=== PATIENT | female | born 1940 | race Caucasian/White ===

== ENCOUNTER 2021-11-15 13:05 | Inpatient (IN) | payer OTHER, SELFPAY ==
[~2021-11-15] VITALS: Ht 152.4 cm; Wt 63.5 kg
[2021-11-15 13:10] VITALS: BP_SYST 130
--- NOTE | 2021-11-15 13:10 | NUR ---
pt. BIB BLS from [facility] for generalized weakness and low O2 Sat per EMS report, Pt. remains in ambulance awaiting a bed, triage done, pt. was on 5L/mask O sat 98% at scene, with hx. of COPD attempted place pt. on NC, O2 sat decreased, remains on 5L/mask
--- NOTE | 2021-11-15 15:00 | NUR ---
ER saw pt. in ambulance patient.
--- NOTE | 2021-11-15 15:47 | NUR ---
BROUGHT IN BY [facility] TO BED #2
[2021-11-15 15:54] LABS: BASOPHILS % (AUTO) 0.2 % (0.0-2.0); HEMATOCRIT 29.9 % (36-48); HEMOGLOBIN 9.5 g/dL (12.0-16.0); LYMPHOCYTES # (AUTO) 0.4 K/uL (1.0-5.5); LYMPHOCYTES % (AUTO) 2.9 % (20.5-51.5); MEAN CORPUSCULAR HEMOGLOBIN 27 pg (27-31); MEAN CORPUSCULAR HGB CONC 32 % (32-36); MEAN CORPUSCULAR VOLUME 85 fL (79.0-98.0); MONOCYTES # (AUTO) 0.8 K/uL (0.0-1.0); MONOCYTES % (AUTO) 6.1 % (1.7-9.3); NEUTROPHILS # (AUTO) 12.5 K/uL (1.8-7.7); NEUTROPHILS % (AUTO) 90.8 % (40.0-70.0); PLATELET COUNT (AUTO) 644 K/uL (130-430); RED BLOOD CELL COUNT(AUTO) 3.51 MIL/uL (4.2-6.2); RED CELL DISTRIBUTION WIDTH 16.2 % (9.0-15.0); WHITE BLOOD COUNT (AUTO) 13.8 K/uL (4.8-10.8)
--- NOTE | 2021-11-15 16:03 | NUR ---
SPOKE WITH DAUGHTER AND UPDATE GIVEN
[2021-11-15 16:40] LABS: ANION GAP 2 (5-15); CALCIUM 8.9 mg/dL (8.4-11.0); CHLORIDE 95 mmol/L (98-107); CREATININE 0.95 mg/dL (0.55-1.30); GLUCOSE 103 mg/dL (70-99); POTASSIUM 4.3 mmol/L (3.5-5.1); SODIUM SERUM 136 mmol/L (136-145); UREA NITROGEN, BLOOD 43 mg/dL (8-21)
[2021-11-15 16:50] LABS: ALANINE AMINOTRANSFERASE 47 U/L (12-78); ALBUMIN 2.4 g/dL (3.4-4.8); ASPARTATE AMINOTRANSFERASE 16 U/L (10-37); TOTAL BILIRUBIN 0.2 mg/dL (0.0-1.0)
--- NOTE | 2021-11-15 17:12 | NUR ---
patient condition goes unchanged, vss. patient sob with exertion. will monitor spo2. spo2 on 3L 92%. comfort and safety implemented
--- NOTE | 2021-11-15 17:14 | NUR ---
Son at bedside to give medication list. Son states that patient has history of schizophernia. patient stop taking psych. meds since before xmas and became manic, running outside in the rain, so admitted to [facility] a week ago for 72 hour psych. hold. patient's medication was adjusted and patient was discharaged. Patient has been home for two days and family states patient has displayed tremors and lethargy from new medications. patient's family states home health care came to home and advised them to get patient evaluated. patient demonstrates tremors and rigidity and is non verbal.
--- NOTE | 2021-11-15 17:20 | NUR ---
Son is Kuldeep Sharp [phone] and has advanced directives on file at [facility]
--- NOTE | 2021-11-15 18:09 | NUR ---
FAMILY CONTACT RADHA OQUENDO [phone]
[2021-11-15] MEDS ORDERED: AZITHROMYCIN 250 MG TABLET PO ONE (20:30)
[2021-11-15] MEDS ORDERED: IPRATROPIUM/ALBUTEROL SULFATE 3 ML AMPUL.NEB (DUONEB) INH ONE (20:30)
[2021-11-15] MEDS ORDERED: cefTRIAXone 1 GM VIAL IM ONE (20:30)
[2021-11-15] MEDS ORDERED: cefTRIAXone 1 GM in D5W 50 ML IV ONE (20:45)
[2021-11-15] MEDS ORDERED: AZITHROMYCIN 500 MG in NS 250 ML IV ONE (20:45)
[2021-11-15] MEDS ORDERED: CLID1CAP PO (20:50)
[2021-11-15] MEDS ORDERED: MULT-1200 PO (20:50)
[2021-11-15] MEDS ORDERED: PRAV10TA PO (20:50)
[2021-11-15] MEDS ORDERED: ALEN70TA3 PO (20:50)
[2021-11-15] MEDS ORDERED: LOSA1TAB43 PO (20:50)
[2021-11-15] MEDS ORDERED: FLUT1BLS3 INH (20:50)
[2021-11-15] MEDS ORDERED: PRED20TA PO (20:50)
[2021-11-15] MEDS ORDERED: MIRT-91 PO (20:50)
--- NOTE | 2021-11-15 20:50 | NUR ---
Medication reconciliation completed with information provided by tomas gordon. Any prior medication reconciliation on file was reviewed and corrected.
--- NOTE | 2021-11-15 20:51 | NUR ---
patient arrives with GLO stating full code
[2021-11-15] MEDS ORDERED: cefTRIAXone 1 GM VIAL ONE (21:14)
[2021-11-15] MEDS ORDERED: AZITHROMYCIN 500 MG/VIAL (ZITHROMAX) IV ONE (21:14)
--- NOTE | 2021-11-15 22:28 | NUR ---
patient resting quietly in bed. chest rise and fall noted. o2 saturation is 98% on 6 liters O2. patient tolerated well.
[2021-11-15] MEDS: NORMAL SALINE 5 ML DISP.SYRIN IVF SCH (22:31)
--- NOTE | 2021-11-15 23:00 | NUR ---
CONSULTATION PAGED/CALLED Reason for Consultation: R/O PNA Person Who was Notified: WYATT Consulting Physician: HUMERA Log Scaler Specialty: Ordering Physician: LUPE
--- NOTE | 2021-11-15 23:06 | NUR ---
Transfer to telemetry via ACLS protocol. Licensed nurse present. IV present no signs or symptoms of infiltration.
--- NOTE | 2021-11-15 23:59 | NUR ---
received from ER via [facility], with 02 inhalation via nasal cannula at 6lpm satting at 98%, aox2, confused and restless. skin intact, needs attended
[2021-11-16 01:52] VITALS: BP_SYST 136
[2021-11-16 04:00] VITALS: BP_SYST 119
[2021-11-16] MEDS: NORMAL SALINE 5 ML DISP.SYRIN IVF SCH ×2 (05:06→16:16)
[2021-11-16 06:52] LABS: BASOPHILS # (AUTO) 0.1 K/uL (0.0-0.2); HEMATOCRIT 26.1 % (36-48); HEMOGLOBIN 8.4 g/dL (12.0-16.0); LYMPHOCYTES # (AUTO) 0.4 K/uL (1.0-5.5); LYMPHOCYTES % (AUTO) 3.3 % (20.5-51.5); MEAN CORPUSCULAR HEMOGLOBIN 28 pg (27-31); MEAN CORPUSCULAR HGB CONC 32 % (32-36); MEAN CORPUSCULAR VOLUME 85 fL (79.0-98.0); MONOCYTES # (AUTO) 0.8 K/uL (0.0-1.0); MONOCYTES % (AUTO) 6.7 % (1.7-9.3); NEUTROPHILS # (AUTO) 10.7 K/uL (1.8-7.7); PLATELET COUNT (AUTO) 577 K/uL (130-430); RED BLOOD CELL COUNT(AUTO) 3.07 MIL/uL (4.2-6.2); RED CELL DISTRIBUTION WIDTH 16.2 % (9.0-15.0); WHITE BLOOD COUNT (AUTO) 12.1 K/uL (4.8-10.8)
[2021-11-16 07:14] LABS: ALANINE AMINOTRANSFERASE 41 U/L (12-78); ALBUMIN 2.1 g/dL (3.4-4.8); ANION GAP 3 (5-15); ASPARTATE AMINOTRANSFERASE 16 U/L (10-37); CALCIUM 8.7 mg/dL (8.4-11.0); CHLORIDE 95 mmol/L (98-107); CHOLESTEROL 164 mg/dL (<200); CREATININE 0.85 mg/dL (0.55-1.30); GLUCOSE 86 mg/dL (70-99); HDL CHOLESTEROL 93 mg/dL (>55); LDL CHOLESTEROL 43 mg/dL (<100); POTASSIUM 3.7 mmol/L (3.5-5.1); SODIUM SERUM 136 mmol/L (136-145); TOTAL BILIRUBIN < 0.1 mg/dL (0.0-1.0); TRIGLYCERIDES 87 mg/dL (30-150); UREA NITROGEN, BLOOD 41 mg/dL (8-21)
--- NOTE | 2021-11-16 07:47 | NUR ---
CONSULTATION PAGED/CALLED Reason for Consultation: [] ACS Person Who was Notified: [] NEETA Consulting Physician: [] DR MORATAYA Security Attendant Specialty: [] CARDIO Ordering Physician: [] DR ANDRADE
--- NOTE | 2021-11-16 07:48 | NUR ---
CONSULTATION PAGED/CALLED Reason for Consultation: [] HYPOXIA Person Who was Notified: [] NEETA Consulting Physician: [] DR MILLER Muck Hauler Specialty: [] DR Javier Physician: [] Addendum: 11/16/21 at 0749 by Jennifer Alvarado [place]/ CONS SPECIALTY: TITUS JAVIER MD: DR ANDRADE
[2021-11-16 09:12] VITALS: BP_SYST 125
--- NOTE | 2021-11-16 09:12 | NUR ---
INITIAL ROUNDS Received pt AAOx1, received pt with oxygen off, very pale, SAO2 78%-pt placed back onto O2 5L via NC. HOB raised, pt encouraged to take slow, deep breaths-SAO2 rechecked and trending up to 88%, now at 96%. Pt now more awake and alert-talking to me about needing her denture cream. Pt educated on the importance of keeping her oxygen on-pt nodded her head yes. Pt voided and cleaned up and fresh chux placed under patient. Pt repositioned in bed with pillow support and heels off-loaded for skin care. Pt voided and cleaned up and fresh chux placed under patient. Pt now sitting up in bed with aspiration precautions and feeding herself cream of wheat. Side rails up x3, bed alarm on and room close to nursing station for safety. Call light within reach.
--- NOTE | 2021-11-16 11:20 | NUR ---
rt notes 1110 upon checking pt confused/ not on her usual self.per Daughter, but saturating 98%. 1120 ABG drawn. Placed pt on bipap 12/6 bur20 70% fio2. Will notify dr. Aguilar about abg results and if any bipap settings change. will continue to monitor pt. Daughter at bedside. AMARIS Gonzales and AMARIS Rdz at bedside.
[2021-11-16] MEDS: IPRATROPIUM/ALBUTEROL SULFATE 3 ML AMPUL.NEB (DUONEB) INH SCH ×4 (11:37→23:04)
--- NOTE | 2021-11-16 12:07 | NUR ---
Nutrition Update Bal Scale 13 noted. Pt admitted for hypoxia, acute coronary syndrome, r/o pneumonia. Diet: 2 gm Na BMI: 27.3 kg/m2 RD to follow per nutrition care standards.
[2021-11-16] MEDS: LORazepam 2 MG/ML VIAL IVP PRN ×2 (13:01→20:34)
[2021-11-16 16:01] VITALS: BP_SYST 114
[2021-11-16] MEDS: D5/0.45 NS 1,000 ML IV SCH (19:27)
--- NOTE | 2021-11-16 19:28 | NUR ---
Pt report received. Pt alert, garbled speech, on BiPAP with settings 12/6, 20, 40% with SPO2 92%. VSS. LFA and LAC patent and secure with D5 1/2 NS infusing at 100 mL/hr to LAC without s/s infiltration.
--- NOTE | 2021-11-16 19:28 | NUR ---
CLOSING NOTE Pt resting quietly in bed with no s/s resp distress, remains on Bipap. No s/s pain or discomfort. Pt now on IVF infusing well at ordered rate with no s/s infiltration to site. Aspiration, skin and safety precautions remain in place. Call light within reach.
--- NOTE | 2021-11-16 20:34 | NUR ---
Pt restless, moaning, reaching for BiPAP. Pt reassured. Medicated with Ativan 0.5 mg IVP.
[2021-11-16] MEDS: AZITHROMYCIN 500 MG in NS 250 ML IV SCH (20:45)
[2021-11-16] MEDS: MIRTAZAPINE 15 MG TABLET PO SCH (21:00)
[2021-11-16] MEDS: ATORVASTATIN 10 MG TABLET PO SCH (21:00)
--- NOTE | 2021-11-16 21:00 | NUR ---
Pt unable to swallow and is high aspiration risk. PO medications held.
[2021-11-17 01:06] VITALS: BP_SYST 142
[2021-11-17] MEDS ORDERED: AZITHROMYCIN 500 MG/VIAL (ZITHROMAX) IV ONE (02:09)
[2021-11-17] MEDS: AZITHROMYCIN 500 MG in NS 250 ML IV SCH ×2 (03:39→21:30)
[2021-11-17] MEDS: NORMAL SALINE 5 ML DISP.SYRIN IVF SCH ×4 (03:40→21:33)
--- NOTE | 2021-11-17 03:40 | NUR ---
Pt anxious, reaching for BiPAP mask. Medicated with Ativan 0.5 mg IVP.
[2021-11-17] MEDS: LORazepam 2 MG/ML VIAL IVP PRN ×2 (04:28→13:22)
[2021-11-17] MEDS: D5/0.45 NS 1,000 ML IV SCH ×3 (04:29→21:33)
[2021-11-17] MEDS: IPRATROPIUM/ALBUTEROL SULFATE 3 ML AMPUL.NEB (DUONEB) INH SCH ×5 (08:03→23:24)
[2021-11-17 08:06] VITALS: BP_SYST 130
[2021-11-17 08:06] LABS: CALCIUM 8.3 mg/dL (8.4-11.0); CHLORIDE 98 mmol/L (98-107); CREATININE 0.59 mg/dL (0.55-1.30); GLUCOSE 97 mg/dL (70-99); POTASSIUM 3.7 mmol/L (3.5-5.1); SODIUM SERUM 139 mmol/L (136-145); UREA NITROGEN, BLOOD 30 mg/dL (8-21)
--- NOTE | 2021-11-17 08:06 | NUR ---
INITIAL ROUNDS Received pt very drowsy, not able to awaken fully. No s/s resp distress, no s/s pain or discomfort. Pt remains on Bipap at ordered settings. IVF infusing well to LAC at ordered rate with no s/s infiltration to site. Pt repositioned with pillow support and heels off-loaded for skin care. HOB elevated for aspiration precautions. Side rails up x3, bed alarm on and room across form nursing station for safety. Call light within reach.
[2021-11-17 08:07] LABS: BASOPHILS # (AUTO) 0.1 K/uL (0.0-0.2); BASOPHILS % (AUTO) 0.8 % (0.0-2.0); EOSINOPHILS # (AUTO) 0.1 K/uL (0.0-0.4); EOSINOPHILS % (AUTO) 1.6 % (0.0-4.0); HEMATOCRIT 26.7 % (36-48); HEMOGLOBIN 8.5 g/dL (12.0-16.0); LYMPHOCYTES # (AUTO) 0.4 K/uL (1.0-5.5); LYMPHOCYTES % (AUTO) 4.9 % (20.5-51.5); MEAN CORPUSCULAR HEMOGLOBIN 27 pg (27-31); MEAN CORPUSCULAR HGB CONC 32 % (32-36); MEAN CORPUSCULAR VOLUME 86 fL (79.0-98.0); MONOCYTES # (AUTO) 0.7 K/uL (0.0-1.0); MONOCYTES % (AUTO) 8.3 % (1.7-9.3); NEUTROPHILS # (AUTO) 7.5 K/uL (1.8-7.7); NEUTROPHILS % (AUTO) 84.4 % (40.0-70.0); PLATELET COUNT (AUTO) 585 K/uL (130-430); RED CELL DISTRIBUTION WIDTH 15.7 % (9.0-15.0); WHITE BLOOD COUNT (AUTO) 8.9 K/uL (4.8-10.8)
[2021-11-17] MEDS: predniSONE 20 MG TABLET PO SCH ×2 (08:30→18:36)
[2021-11-17] MEDS ORDERED: FLUTICASONE/VILANTEROL 1 EACH BLST.W.DEV INH SCH (09:00)
[2021-11-17] MEDS: PANTOPRAZOLE SODIUM 40 MG TAB PO SCH (09:00)
[2021-11-17 09:44] LABS: ANION GAP 3 (5-15)
--- NOTE | 2021-11-17 10:38 | NUR ---
RT NOTES 1038 Switched pt on Bipap settings 16/8 bur20 35% fio2. saturation 97%. ABG tomorrow AM per RN Kajal. will monitor pt.
[2021-11-17 12:00] VITALS: BP_SYST 135
--- NOTE | 2021-11-17 12:45 | NUR ---
ROUNDS/WATER Pt's family at bedside, pt c/o dry mouth, pt's bed raised up for aspiration precautions and pt able to take 2 small sips of water, then pt placed back onto Bipap by RT.
--- NOTE | 2021-11-17 13:25 | NUR ---
AGITATED Pt very agitated and anxious-pulling at bipap mask and tubing. Pt given Ativan as ordered. Aspiration, skin and safety precautions remain in place.
[2021-11-17 14:05] LABS: ERYTHROCYTE SEDIMENTATION RATE 111 MM/HR (0-20)
--- NOTE | 2021-11-17 14:05 | NUR ---
DNR PER DAUGHTER Pt's daughter Kathie Law [phone] is requesting pt be changed to DNR status.
[2021-11-17] MEDS: cefTRIAXone 1 GM IVPB PREMIX 50 ML IV SCH (15:04)
[2021-11-17 16:00] VITALS: BP_SYST 133
--- NOTE | 2021-11-17 19:31 | NUR ---
CLOSING NOTE Pt remains on Bipap at ordered settings with no s/s resp distress, pt remains restless at times. IVF infusing well to LFA at order rate with no s/s infiltration to site. Aspiration, skin and safety precautions remain in place. Report given to coordinator hotels nurse.
[2021-11-17 20:00] VITALS: BP_SYST 124
[2021-11-17] MEDS: MIRTAZAPINE 15 MG TABLET PO SCH (21:00)
[2021-11-17] MEDS: ATORVASTATIN 10 MG TABLET PO SCH (21:00)
[2021-11-18 00:14] VITALS: BP_SYST 125
[2021-11-18] MEDS: IPRATROPIUM/ALBUTEROL SULFATE 3 ML AMPUL.NEB (DUONEB) INH SCH ×5 (03:43→19:40)
[2021-11-18] MEDS: NORMAL SALINE 5 ML DISP.SYRIN IVF SCH ×3 (05:55→22:21)
[2021-11-18] MEDS: predniSONE 20 MG TABLET PO SCH ×2 (08:30→18:00)
[2021-11-18] MEDS: PANTOPRAZOLE SODIUM 40 MG TAB PO SCH (08:44)
[2021-11-18 08:45] VITALS: BP_SYST 129
--- NOTE | 2021-11-18 08:45 | NUR ---
Routine Scheduled medication given per order. Patient stable at this time; desats when BiPap is removed.
--- NOTE | 2021-11-18 08:51 | NUR ---
LATE ENTRY : 1999:INITIAL ROUNDS PT IS SLEEPING , EASILY AROUSABLE ; ON BIPAP 16/ 8 , 35% ; PT IS TOLERAQTING IT AT THIS TIME; IV FLUID IS INFUSING WELL , NO S/S OF ANY INFILTRATION NOTICED ; HOB IS ELEVATED ; BED IN LOW AND LOCK POSIITON, CALL FOSS IN REACH ; WILL CONTINUE TO MONITOR PT . 2133:O2 SAT IS HIGH 80S , RT CALLED , AFTER CHECKING RT ADJUSTED FIO2 TO 40% . WILL MONITOR PT . 2236: CALLED : DR GRUBBS CALLED AND ORDERED TO DO PCR FOR COVID . WILL MOVE PT SOON POSSIBLE : 0000 :PT MOVED TO 122 A. O2 SAT 95% 0600:JAVA PERFORMANCE ENGINEER CAME AND SAID PT REMOVED HER IV, , WENT AND CHECKED , NOTICED LEFT AC IV IS OUT , IV CATH TIP IS INTACT ; ALSO NOTICED LEFT FA , IV IS INFILTRATED; IV FLUID STOPPED ; WILL START NEW IV . 0630: TRIED TO START NEW IV X 3, 24 G TO R HAND , GOOD BLOOD RETURN NOTICED , BUT CONNECTING WITH IV ITS NOT INFUSING .O2 SAT 94% 0650: NEW IV STARTED BY ICU NURSE TO LEFT AC 20 G , PT IS COMFORTABLE . 0755: REPORT GIVEN TO RN ; PT IS COMFORTABLE ; NOT IN ANY ACUTE DISTRESS.
--- NOTE | 2021-11-18 09:00 | NUR ---
Routine Patient stable with Dr. Palacios at bedside.
[2021-11-18 11:26] VITALS: BP_SYST 145
[2021-11-18] MEDS: D5/0.45 NS 1,000 ML IV SCH ×2 (12:05→20:15)
--- NOTE | 2021-11-18 12:05 | NUR ---
Routine Patient resting quietly in bed with no respiratory distress noted. Patient stable.
[2021-11-18] MEDS: cefTRIAXone 1 GM IVPB PREMIX 50 ML IV SCH (14:30)
--- NOTE | 2021-11-18 14:30 | NUR ---
Routine Scheduled IV abx given per order. Patient stable at this time with no respiratory distress noted.
[2021-11-18 15:30] VITALS: BP_SYST 121
--- NOTE | 2021-11-18 16:45 | NUR ---
Routine Patient stable at this time with no respiratory distress noted.
--- NOTE | 2021-11-18 17:35 | NUR ---
Routine Patient stable; resting comfortably in bed at this time.
--- NOTE | 2021-11-18 18:10 | NUR ---
Routine Patient stable throughout shift. Addendum: 11/18/21 at 1849 by Ashia Eldridge RN Patient refused to eat; scheduled po medication not given.
[2021-11-18 20:00] VITALS: BP_SYST 158
[2021-11-18] MEDS: AZITHROMYCIN 500 MG in NS 250 ML IV SCH (20:25)
[2021-11-18] MEDS: ATORVASTATIN 10 MG TABLET PO SCH (22:23)
[2021-11-18] MEDS: MIRTAZAPINE 15 MG TABLET PO SCH (22:23)
[2021-11-19] VITALS (7 sets, daily range): BP systolic 144–163
[2021-11-19] MEDS: IPRATROPIUM/ALBUTEROL SULFATE 3 ML AMPUL.NEB (DUONEB) INH SCH ×7 (06:00→23:22)
[2021-11-19] MEDS: D5/0.45 NS 1,000 ML IV SCH ×2 (06:30→18:48)
[2021-11-19] MEDS: NORMAL SALINE 5 ML DISP.SYRIN IVF SCH ×3 (06:30→21:28)
[2021-11-19 07:25] LABS: BASOPHILS % (AUTO) 0.3 % (0.0-2.0); EOSINOPHILS % (AUTO) 0.1 % (0.0-4.0); HEMOGLOBIN 7.6 g/dL (12.0-16.0); LYMPHOCYTES # (AUTO) 0.3 K/uL (1.0-5.5); LYMPHOCYTES % (AUTO) 1.9 % (20.5-51.5); MEAN CORPUSCULAR HEMOGLOBIN 28 pg (27-31); MEAN CORPUSCULAR HGB CONC 33 % (32-36); MEAN CORPUSCULAR VOLUME 85 fL (79.0-98.0); MONOCYTES # (AUTO) 0.4 K/uL (0.0-1.0); MONOCYTES % (AUTO) 2.9 % (1.7-9.3); NEUTROPHILS # (AUTO) 13.6 K/uL (1.8-7.7); NEUTROPHILS % (AUTO) 94.8 % (40.0-70.0); PLATELET COUNT (AUTO) 444 K/uL (130-430); RED BLOOD CELL COUNT(AUTO) 2.72 MIL/uL (4.2-6.2); RED CELL DISTRIBUTION WIDTH 16.2 % (9.0-15.0); WHITE BLOOD COUNT (AUTO) 14.4 K/uL (4.8-10.8)
--- NOTE | 2021-11-19 07:33 | NUR ---
Received pt from [facility]. Assumed all care.
--- NOTE | 2021-11-19 07:38 | NUR ---
Received pt from [facility]. Assumed all care.
[2021-11-19 07:56] LABS: ALANINE AMINOTRANSFERASE 65 U/L (12-78); ALBUMIN 1.7 g/dL (3.4-4.8); ANION GAP 4 (5-15); ASPARTATE AMINOTRANSFERASE 58 U/L (10-37); CALCIUM 8.1 mg/dL (8.4-11.0); CHLORIDE 103 mmol/L (98-107); CREATININE 0.62 mg/dL (0.55-1.30); GLUCOSE 105 mg/dL (70-99); POTASSIUM 3.8 mmol/L (3.5-5.1); SODIUM SERUM 144 mmol/L (136-145); TOTAL BILIRUBIN 0.1 mg/dL (0.0-1.0); UREA NITROGEN, BLOOD 23 mg/dL (8-21)
--- NOTE | 2021-11-19 08:05 | NUR ---
rt notes 0805 Placed pt on Vapotherm (HFNC) per Dr. Aguilar, 20L and 40% fio2. pt saturating 96%. will continue to monitor pt.
[2021-11-19] MEDS: PANTOPRAZOLE SODIUM 40 MG TAB PO SCH (10:44)
[2021-11-19] MEDS: predniSONE 20 MG TABLET PO SCH ×2 (10:45→18:48)
--- NOTE | 2021-11-19 10:57 | NUR ---
paged dr urias with abg results, awaiting call back.
--- NOTE | 2021-11-19 12:30 | NUR ---
Dr. Singh paged a second time to report abgs. awaiting call back. No charge nurse today [facility] aware that Dr. Singh has not call back.
[2021-11-19] MEDS: cefTRIAXone 1 GM IVPB PREMIX 50 ML IV SCH (14:30)
[2021-11-19 15:21] LABS: TOTAL IRON BIND. CAPACITY 221 ug/dL (250-450)
--- NOTE | 2021-11-19 16:00 | NUR ---
Paged dr. urias 3rd time. awaiting call back. paged dr. daly one hour ago no call back. [facility] made aware.
--- NOTE | 2021-11-19 19:34 | NUR ---
ENDORSED ALL CARE TO AMARIS BOLTON. ALL QUESTIONS AND CONCERNS ADDRESSED.
[2021-11-19] MEDS: AZITHROMYCIN 500 MG in NS 250 ML IV SCH (21:21)
[2021-11-19] MEDS: ATORVASTATIN 10 MG TABLET PO SCH (21:21)
[2021-11-19] MEDS: MIRTAZAPINE 15 MG TABLET PO SCH (21:21)
[2021-11-19] MEDS: LORazepam 2 MG/ML VIAL IVP PRN (21:25)
[2021-11-20] MEDS: IPRATROPIUM/ALBUTEROL SULFATE 3 ML AMPUL.NEB (DUONEB) INH SCH ×6 (03:46→23:03)
[2021-11-20 05:06] LABS: FOLATE (FOLIC ACID) 16.8 ng/mL (>3.0)
[2021-11-20 08:01] VITALS: BP_SYST 142
--- NOTE | 2021-11-20 10:10 | NUR ---
ASSUME CARE: ASSUME CARE AT THIS TIME. ENDORSED FROM CHARGE NURSE. PHYSICIAN PRACTICE MANAGER RN DID NOT GIVE REPORT. ASSUME CARE AT 1000.
[2021-11-20] MEDS: predniSONE 20 MG TABLET PO SCH ×2 (10:17→18:31)
[2021-11-20] MEDS: PANTOPRAZOLE SODIUM 40 MG TAB PO SCH (10:17)
[2021-11-20 11:26] VITALS: BP_SYST 132
[2021-11-20] MEDS: D5/0.45 NS 1,000 ML IV SCH (12:24)
[2021-11-20] MEDS: NORMAL SALINE 5 ML DISP.SYRIN IVF SCH ×2 (14:00→22:00)
[2021-11-20] MEDS: cefTRIAXone 1 GM IVPB PREMIX 50 ML IV SCH (15:57)
[2021-11-20 16:13] VITALS: BP_SYST 138
--- NOTE | 2021-11-20 16:26 | NUR ---
RN NOTES: PATIENT RESTING IN BED. SOB UPON EXERTION. PATIENT IS ON OXYMIZER. DENIES ANY DISCOMFORT AT THIS TIME. BED LOCKED, ALARM ON AND IN LOWEST POSITION CALL LIGHT WITHIN REACH.
--- NOTE | 2021-11-20 16:52 | NUR ---
RN NOTES: INCONTINENT CARE DONE. SOB UPON EXERTION. REPOSITIONED PATIENT. DAUGHTER AT BEDSIDE. FALL, SAFETY AND ASPIRATION MEASURES PROVIDED.
[2021-11-20 19:00] VITALS: BP_SYST 145
--- NOTE | 2021-11-20 19:15 | NUR ---
CLOSING NOTES: PATIENT RESTING IN BED. BREATHING EVEN AND NON LABORED TO OXYMIZER AT 4L. DENIES ANY DISCOMFORT AT THIS TIME. FALL, SAFETY AND ASPIRATION MEASURES PROVIDED. BED LOCKED, ALARM ON AND IN LOWEST POSITION. CALL LIGHT WITHIN REACH.
[2021-11-20 20:00] VITALS: BP_SYST 145
[2021-11-20] MEDS: MIRTAZAPINE 15 MG TABLET PO SCH (20:18)
[2021-11-20] MEDS: ATORVASTATIN 10 MG TABLET PO SCH (20:19)
[2021-11-20] MEDS: AZITHROMYCIN 500 MG in NS 250 ML IV SCH (20:20)
[2021-11-21] MEDS: D5/0.45 NS 1,000 ML IV SCH ×2 (01:23→09:22)
[2021-11-21] MEDS: IPRATROPIUM/ALBUTEROL SULFATE 3 ML AMPUL.NEB (DUONEB) INH SCH ×6 (03:02→23:00)
--- NOTE | 2021-11-21 06:02 | NUR ---
end of shift note: Pt environmental advisor light multiple times to get two tv controls (one works, one does not). But, although explained and demonstrated to pt, she insists on having both the functional and non-functional tv control/nsg call light boxes. Incontinence care provided to pt x1 per pt specifications (pt refused male nurse).
[2021-11-21] MEDS: NORMAL SALINE 5 ML DISP.SYRIN IVF SCH ×3 (06:20→21:52)
[2021-11-21 07:36] LABS: BASOPHILS % (AUTO) 0.4 % (0.0-2.0); EOSINOPHILS # (AUTO) 0.2 K/uL (0.0-0.4); EOSINOPHILS % (AUTO) 1.7 % (0.0-4.0); LYMPHOCYTES # (AUTO) 0.7 K/uL (1.0-5.5); LYMPHOCYTES % (AUTO) 6.3 % (20.5-51.5); MEAN CORPUSCULAR HEMOGLOBIN 27 pg (27-31); MEAN CORPUSCULAR HGB CONC 31 % (32-36); MEAN CORPUSCULAR VOLUME 86 fL (79.0-98.0); MONOCYTES # (AUTO) 0.4 K/uL (0.0-1.0); MONOCYTES % (AUTO) 3.8 % (1.7-9.3); NEUTROPHILS # (AUTO) 9.6 K/uL (1.8-7.7); NEUTROPHILS % (AUTO) 87.8 % (40.0-70.0); PLATELET COUNT (AUTO) 488 K/uL (130-430); RED BLOOD CELL COUNT(AUTO) 2.89 MIL/uL (4.2-6.2); RED CELL DISTRIBUTION WIDTH 16.2 % (9.0-15.0); WHITE BLOOD COUNT (AUTO) 10.9 K/uL (4.8-10.8)
[2021-11-21 08:10] LABS: ALANINE AMINOTRANSFERASE 45 U/L (12-78); ALBUMIN 1.6 g/dL (3.4-4.8); ANION GAP 5 (5-15); ASPARTATE AMINOTRANSFERASE 25 U/L (10-37); CALCIUM 7.7 mg/dL (8.4-11.0); CHLORIDE 104 mmol/L (98-107); CREATININE 0.52 mg/dL (0.55-1.30); GLUCOSE 105 mg/dL (70-99); POTASSIUM 3.4 mmol/L (3.5-5.1); SODIUM SERUM 142 mmol/L (136-145); UREA NITROGEN, BLOOD 10 mg/dL (8-21)
--- NOTE | 2021-11-21 08:27 | NUR ---
PT AAOX2 TO PERSON AND PLACE. CAN VERBALIZE NEEDS. PT ON HIGH FLOW N/C AT 30LPM, FIO2 ATT 40%. RESP EVEN, SHALLOW. LUNG SOUNDS DIMINISHED BILATERALLY. LAC 20G IV CATH IN PLACE WITH D5 1/2 NS RUNNING AT 100, SITE WNL, CDI. PT BEDBOUND WILL BE TURNED AND REPOSTIONED Q 2 HOURS AND PRN. ABDOMEN SOFT NONTENDER, NONDISTENDED. BOWEL SOUNDS ACTIVE X4 QUADS. PT INCONTINENT OF BOWEL AND BLADDER. PT DENIES PAIN. CALL LIGHT WITHIN REACH. DENIES PAIN. BED IN LOWEST POSITION. FALL PROTOCOL IN PLACE.
--- NOTE | 2021-11-21 08:30 | NUR ---
RCV'D PT ON HIGH FLOW WITH SETTINGS 30 L 50% FIO2. PT IS SOB AND CAN NOT CATCH HER BREATH. SPO2 95% HR 68. ASKED PT IF SHE WANTS TO GO ON BIPAP, PT AGREED. PLACED PATIENT ON BIPAP WITH CHARTED SETTINGS. BIPAP CONNECTED TO RED OUTLET. ALARMS AUDIBLE. WILL CONTINUE TO MONITOR PATIENT.
[2021-11-21 09:00] VITALS: BP_SYST 145
[2021-11-21] MEDS: predniSONE 20 MG TABLET PO SCH ×2 (09:02→18:40)
[2021-11-21] MEDS: PANTOPRAZOLE SODIUM 40 MG TAB PO SCH (09:02)
[2021-11-21] MEDS: LORazepam 2 MG/ML VIAL IVP PRN (09:04)
--- NOTE | 2021-11-21 09:10 | NUR ---
R/T AT BEDSIDE PT HAD SOB BUT O2 REMAINED AT 95%, PT WAS PUT ON BIPAP BUT REFUSED. PT NOW ON HIGH FLOW AT 100% WITH NONREBREATHER AT 100%. PT GIVEN ATIVAN 0.5MG IVP PRN FOR ANXIETY. WILL ATTEMPT BIBAP AGAIN WHEN PT CALMS.
--- NOTE | 2021-11-21 09:10 | NUR ---
GOT CALL FROM RN THAT PT IS RIPPING HER MASK OFF. PT IS COMBATIVE AND DOESN'T WANT TO KEEP MASK ON. PT KEEPS SAYING"ITS BEEN A LONG TIME". BIPAP MASK OFF. PLACED PATIENT ON HIGH FLOW WITH MAX SETTINGS 40 L FIO2 100% AND NRB MASK. RN AT BEDSIDE. RN WILL ADMINISTER PRN ATIVAN. SPO2 NOW IS 100%. WILL CONTINUE TO MONITOR PATIENT.
[2021-11-21 09:18] LABS: TOTAL BILIRUBIN 0.1 mg/dL (0.0-1.0)
--- NOTE | 2021-11-21 09:23 | NUR ---
DR. MCBRIDE AT BEDSIDE TO ASSESS PT, NNOS.
[2021-11-21 09:51] LABS: HEMOGLOBIN 7.8 g/dL (12.0-16.0)
--- NOTE | 2021-11-21 10:05 | NUR ---
CHECKING ON PATIENT. SPO2 100% NRB REMOVED. HIGH FLOW FIO2 DECREASED TO 80%. PT IS ASLEEP. NO DISTRESS NOTED. WILL CONTINUE TO MONITOR.
[2021-11-21 11:27] VITALS: BP_SYST 139
--- NOTE | 2021-11-21 11:30 | NUR ---
DR. SHELTON MADE AWARE PT WAS IN RESP DISTRESS. PLACED ON NONREBREATHER AND FI02 INCREASED TO 100% ON HIGH FLOW. NNOS.
--- NOTE | 2021-11-21 11:33 | NUR ---
PT'S SPO2 100%. TITRATED FIO2 TO 60%. SPO2 REMAINS 96% HR 80. NO DISTRESS NOTED. RN DEVIKA AWARE OF CHANGES. HHN TX GIVEN WITH NO ADVERSE REACTION. WILL CONTINUE TO MONITOR PATIENT.
[2021-11-21] MEDS: cefTRIAXone 1 GM IVPB PREMIX 50 ML IV SCH (13:25)
[2021-11-21 15:10] VITALS: BP_SYST 132
--- NOTE | 2021-11-21 15:30 | NUR ---
RECEIVED ORDER FROM DR. SHELTON PT MAY HAVE CHOPPED DIET AND KLOR CON [id number] FOR K+=3.4. ORDERS CARRIED OUT.
--- NOTE | 2021-11-21 15:30 | NUR ---
PT GIVEN SHAMPOO AND LINEN CHANGE.
[2021-11-21 16:20] VITALS: BP_SYST 149
[2021-11-21] MEDS ORDERED: POTASSIUM CHLORIDE 20 MEQ/PKT PACKET PO ONE (18:15)
--- NOTE | 2021-11-21 19:23 | NUR ---
Dietitian Recommendations: *2g Na diet, with Ensure Enlive TID (Provide additional of 1058 kcal, 60g protein) * Encourage PO intake Please refer to nutrition assessment for details.
--- NOTE | 2021-11-21 19:29 | NUR ---
Endorsed all care to AMARIS Kunz, all questions and concerns addressed.
[2021-11-21 20:00] VITALS: BP_SYST 145
[2021-11-21] MEDS: ATORVASTATIN 10 MG TABLET PO SCH (20:38)
[2021-11-21 22:55] VITALS: BP_SYST 153
[2021-11-22] MEDS: D5/0.45 NS 1,000 ML IV SCH ×2 (02:23→19:00)
[2021-11-22] MEDS: IPRATROPIUM/ALBUTEROL SULFATE 3 ML AMPUL.NEB (DUONEB) INH SCH ×6 (02:59→23:00)
--- NOTE | 2021-11-22 08:16 | NUR ---
RT Notes [address] Aguilar switched pt from vapotherm to oxymizer 6L, saturating 97%. no resp distress noted. 0850 ABG draw. 0855 Per ABG results, PO2 131, decreased oxymizer to 4L, pt saturating 96%. will continue to monitor pt. AMARIS macias.
[2021-11-22] MEDS: PANTOPRAZOLE SODIUM 40 MG TAB PO SCH ×2 (08:37→18:00)
[2021-11-22] MEDS: predniSONE 20 MG TABLET PO SCH ×2 (08:39→18:02)
[2021-11-22 11:23] VITALS: BP_SYST 162
[2021-11-22] MEDS: cefTRIAXone 1 GM IVPB PREMIX 50 ML IV SCH ×2 (14:00→18:00)
[2021-11-22] MEDS: NORMAL SALINE 5 ML DISP.SYRIN IVF SCH ×3 (14:00→21:16)
[2021-11-22 15:14] VITALS: BP_SYST 171
[2021-11-22 18:24] VITALS: BP_SYST 171
[2021-11-22] MEDS: ATORVASTATIN 10 MG TABLET PO SCH (21:15)
[2021-11-22 21:16] VITALS: BP_SYST 153
[2021-11-23 00:31] VITALS: BP_SYST 162
[2021-11-23] MEDS: IPRATROPIUM/ALBUTEROL SULFATE 3 ML AMPUL.NEB (DUONEB) INH SCH ×5 (03:00→23:15)
[2021-11-23] MEDS: D5/0.45 NS 1,000 ML IV SCH (04:11)
[2021-11-23] MEDS: NORMAL SALINE 5 ML DISP.SYRIN IVF SCH ×2 (05:26→22:00)
[2021-11-23 11:31] VITALS: BP_SYST 160
[2021-11-23 15:24] VITALS: BP_SYST 156
[2021-11-23 20:00] VITALS: BP_SYST 157
[2021-11-23] MEDS: ATORVASTATIN 10 MG TABLET PO SCH (20:51)
--- NOTE | 2021-11-23 22:00 | NUR ---
RESIDENT AWAKE,ALERT ORIENTED X 3. ABLE TO MAKE NEEDS KNOWN AND FOLLOW SIMPLE COMMANDS. NOTED W/ FLUCTUATING O2 SAT RANGING 90-95, RESIDENT RECEIVING O2 THERAPY VIA OXYMIZER @ 4L. RESIDENT CONSUMED <25% DINNER, OFFERED ENSURE LATA. OFFERED EXTRA ORAL FLUIDS TOLERATED. INCONTINENCE CARE PROVIDED. SKIN CARE PROVIDED FOR SACRAL AREA REDNESS. TURNED & REPOSITIONED. BREATHING TX ADMINISTERED BY RT. NEEDS ANTICIPATED. CALL LIGHT W/IN REACH.
[2021-11-24] VITALS: BP_SYST 152
[2021-11-24] MEDS: D5/0.45 NS 1,000 ML IV SCH ×2 (00:33→17:13)
[2021-11-24] MEDS: IPRATROPIUM/ALBUTEROL SULFATE 3 ML AMPUL.NEB (DUONEB) INH SCH ×6 (03:00→23:00)
[2021-11-24] MEDS: NORMAL SALINE 5 ML DISP.SYRIN IVF SCH ×3 (06:15→22:00)
--- NOTE | 2021-11-24 07:04 | NUR ---
INFORMED REG RN FORENZA THAT THE PATIENT'S 02 SATURATION WAS 87 %
[2021-11-24 08:02] VITALS: BP_SYST 159
[2021-11-24] MEDS: predniSONE 20 MG TABLET PO SCH ×2 (09:37→18:06)
[2021-11-24] MEDS: PANTOPRAZOLE SODIUM 40 MG TAB PO SCH (09:37)
[2021-11-24 11:30] VITALS: BP_SYST 134
--- NOTE | 2021-11-24 11:33 | NUR ---
Dietitian Recommendations * Continue 2 gm Na, chopped diet, Ensure Enlive TID (supplements yield 1050 kcal/day, 60 protein/day) * Encourage increase PO intakes * Stool softener/laxative LP, RD Please refer to Nutrition F/U for details.
--- NOTE | 2021-11-24 12:17 | NUR ---
INFORMED AMARIS SELLERS THAT THE PATIENTS 02 SATURATION IS 87
[2021-11-24] MEDS: cefTRIAXone 1 GM in D5W 50 ML IV SCH (13:22)
[2021-11-24 15:28] VITALS: BP_SYST 139
--- NOTE | 2021-11-24 15:40 | NUR ---
Nutrition F/U Admitting Diagnosis Hypoxia, Acute Coronary Syndrome R/O Pneumonia Reviewed Pertinent Medical/Surgical Hx Medical Record Medical History Comment: PMH: advanced case of chronic obstructive lung disease secondary to previous smoking, chronic anxiety, significant weight loss. SARS-CoV02 Ag Rapid 11/15 Negative, PCR Negative 11/18 Pt is also admitted w/ exacerbation of chronic obstructive lung disease 2/2 long-term smoking, Essential hypertension, Anemia of uncertain etiology, General anxiety, malnutrition. Subjective Information Short note d/t high RD load. Per EMR review, pt is on 5L O2 via Oxymizer; pt continues w/ poor appetite; average PO intakes of 37% x7 meal records; no BM noted since 11/16 (8 days); Bal scale: 14, no PIs noted; D/C planning in place for SNF d/t O2 and IV ABX.Pt is at increased risk for malnutrition. Current Diet Order/Nutrition Support 2 gm Na, chopped, Ensure Enlive TID x2 days Pertinent Medications protonix, prednisone, lipitor, D5%NS at 60 ml/hr (245 kcal/day) Pertinent Labs No new labs -- 11/21: WBC 10.9 H, K 3.4 L, CRE 0.52 L, BG 105 H, ALB 1.6 L Height (Feet) 5 feet Height (Inches) 0.00 inches Weight (Pounds) 140 pounds -- stable since 11/21 Weight (Calculated Kilograms) 63.125116 kilograms Patient Weight 63.503 kg Body Mass Index 27.34 kg/m2 [place]/Adjusted Body Weight IBW: 140lbs , Adj BW: 110lbs/ 50kg Current % PO Poor (25-49%) Estimated Energy Expenditure (kcals/day) 4911-8757 kcal (25-30 kcal/kg Adj BW for GERIAT maintenance) Estimated Protein Required (g/day) 60 (1.2 gm/kg Adj BW for GERIAT maintenance) Estimated Fluid Required (l/day) 1.2 (25ml/kg adj BW for GERIAT maintenance) Problem/Etiology/Signs/Symptoms Inadequate protein-calorie intake r/t SOB AEB Pt is refusing trays due to difficulty of breathing. *ongoing Expected Outcomes/Goals Monitor appetite and PO intake w/ goal of pt meeting more than 75% of estimated nutritional needs, labs trending WNL, normal GI function, skin integrity/wt maintenance. Dietitian Recommendations * Continue 2 gm Na, chopped diet, Ensure Enlive TID (supplements yield 1050 kcal/day, 60 protein/day) * Encourage increase PO intakes * Stool softener/laxative Follow Up High Risk: F/U in 2-3 days
--- NOTE | 2021-11-24 19:30 | NUR ---
late entry due to care 0800- pt stable not in acute distress. on oxygen 5 l via oximizer. saturation 94%. denies any sob at this time. need attended hob elevated. kept comfortable. 1200. pt stable notin acute distress.. 1400- due meds given as order. daughter at bed side. hob elevated. no in any acute distress.. 1600- pt stable notin any acute distress. continue on 5 l oximizer. continue pulse ox monitoring. vitals stable. kept comfortable 1930- pt stable not in acute distress. needs attnded throughout shift
[2021-11-24 21:00] VITALS: BP_SYST 162
[2021-11-24] MEDS: ATORVASTATIN 10 MG TABLET PO SCH (21:00)
--- NOTE | 2021-11-24 22:00 | NUR ---
NOTES: pt. O@ sat @ 87%, on 3 liters per oximizer, called RT to give breathing treatment. noted occ. bouts of non productive cough. HOB elevated.
[2021-11-25 01:00] VITALS: BP_SYST 154
[2021-11-25] MEDS: D5/0.45 NS 1,000 ML IV SCH (01:55)
--- NOTE | 2021-11-25 05:30 | NUR ---
NOTES:' pt. incontinent of urine, kept dry,samra care done. sacral /coccyx area reddened , Z jose applied and foam dressing. IVF continuous.
[2021-11-25] MEDS: NORMAL SALINE 5 ML DISP.SYRIN IVF SCH ×3 (06:00→22:40)
--- NOTE | 2021-11-25 06:30 | NUR ---
CLOSING NOTES; pt. kept on 3 liters O2 per oximizer. needs attended. IV site patent. for further care and assist. will endorse to incoming shift.
[2021-11-25] MEDS: IPRATROPIUM/ALBUTEROL SULFATE 3 ML AMPUL.NEB (DUONEB) INH SCH ×3 (07:19→16:08)
[2021-11-25 07:47] LABS: BASOPHILS % (AUTO) 0.4 % (0.0-2.0); HEMATOCRIT 24.4 % (36-48); HEMOGLOBIN 7.9 g/dL (12.0-16.0); LYMPHOCYTES # (AUTO) 0.2 K/uL (1.0-5.5); LYMPHOCYTES % (AUTO) 2.8 % (20.5-51.5); MEAN CORPUSCULAR HEMOGLOBIN 27 pg (27-31); MEAN CORPUSCULAR HGB CONC 33 % (32-36); MEAN CORPUSCULAR VOLUME 84 fL (79.0-98.0); MONOCYTES # (AUTO) 0.2 K/uL (0.0-1.0); MONOCYTES % (AUTO) 2.3 % (1.7-9.3); NEUTROPHILS # (AUTO) 8.2 K/uL (1.8-7.7); NEUTROPHILS % (AUTO) 94.5 % (40.0-70.0); PLATELET COUNT (AUTO) 364 K/uL (130-430); RED BLOOD CELL COUNT(AUTO) 2.92 MIL/uL (4.2-6.2); RED CELL DISTRIBUTION WIDTH 16.3 % (9.0-15.0); WHITE BLOOD COUNT (AUTO) 8.7 K/uL (4.8-10.8)
[2021-11-25 08:00] VITALS: BP_SYST 137
[2021-11-25 08:37] LABS: ALANINE AMINOTRANSFERASE 48 U/L (12-78); ANION GAP 2 (5-15); ASPARTATE AMINOTRANSFERASE 19 U/L (10-37); CALCIUM 8.1 mg/dL (8.4-11.0); CHLORIDE 99 mmol/L (98-107); CREATININE 0.48 mg/dL (0.55-1.30); GLUCOSE 134 mg/dL (70-99); SODIUM SERUM 140 mmol/L (136-145); TOTAL BILIRUBIN 0.1 mg/dL (0.0-1.0); UREA NITROGEN, BLOOD 8 mg/dL (8-21)
[2021-11-25 08:38] LABS: ALBUMIN 1.9 g/dL (3.4-4.8)
[2021-11-25 09:02] LABS: C-REACTIVE PROTEIN QUANT 1.6 mg/dL (0-0.5)
[2021-11-25 09:26] LABS: ERYTHROCYTE SEDIMENTATION RATE 74 MM/HR (0-20)
[2021-11-25] MEDS: predniSONE 20 MG TABLET PO SCH ×2 (09:26→18:37)
[2021-11-25] MEDS: PANTOPRAZOLE SODIUM 40 MG TAB PO SCH (09:26)
[2021-11-25 12:00] VITALS: BP_SYST 148
[2021-11-25] MEDS: cefTRIAXone 1 GM in D5W 50 ML IV SCH (13:20)
[2021-11-25 16:00] VITALS: BP_SYST 139
[2021-11-25 19:00] VITALS: BP_SYST 134
[2021-11-25 20:00] VITALS: BP_SYST 134
[2021-11-25] MEDS: ATORVASTATIN 10 MG TABLET PO SCH (22:39)
[2021-11-26] MEDS: IPRATROPIUM/ALBUTEROL SULFATE 3 ML AMPUL.NEB (DUONEB) INH SCH ×7 (00:07→23:01)
[2021-11-26 01:12] VITALS: BP_SYST 140
[2021-11-26] MEDS: D5/0.45 NS 1,000 ML IV SCH ×2 (03:30→19:13)
[2021-11-26 07:31] LABS: BASOPHILS # (AUTO) 0.1 K/uL (0.0-0.2); BASOPHILS % (AUTO) 1.2 % (0.0-2.0); EOSINOPHILS % (AUTO) 0.1 % (0.0-4.0); HEMOGLOBIN 8.1 g/dL (12.0-16.0); LYMPHOCYTES # (AUTO) 0.4 K/uL (1.0-5.5); LYMPHOCYTES % (AUTO) 4.5 % (20.5-51.5); MEAN CORPUSCULAR HEMOGLOBIN 27 pg (27-31); MEAN CORPUSCULAR HGB CONC 33 % (32-36); MEAN CORPUSCULAR VOLUME 83 fL (79.0-98.0); MONOCYTES # (AUTO) 0.3 K/uL (0.0-1.0); MONOCYTES % (AUTO) 3.8 % (1.7-9.3); NEUTROPHILS # (AUTO) 7.1 K/uL (1.8-7.7); NEUTROPHILS % (AUTO) 90.4 % (40.0-70.0); PLATELET COUNT (AUTO) 335 K/uL (130-430); RED BLOOD CELL COUNT(AUTO) 3.02 MIL/uL (4.2-6.2); RED CELL DISTRIBUTION WIDTH 16.5 % (9.0-15.0); WHITE BLOOD COUNT (AUTO) 7.9 K/uL (4.8-10.8)
[2021-11-26 08:15] VITALS: BP_SYST 158
--- NOTE | 2021-11-26 08:15 | NUR ---
Initial Note Patient awake, alert, and oriented x 4. Forgetful. Dyspnea on exertion. O2 saturation 90% on 5 L via Oxymizer. Respiration rate 18 at rest, 22 after exertion. Aspiration precautions in place. Bed locked in lowest position with alarm on. Call light in reach, encouraged to call.
[2021-11-26 08:31] LABS: ALANINE AMINOTRANSFERASE 47 U/L (12-78); ASPARTATE AMINOTRANSFERASE 21 U/L (10-37); CHLORIDE 98 mmol/L (98-107); CREATININE 0.44 mg/dL (0.55-1.30); GLUCOSE 110 mg/dL (70-99); POTASSIUM 3.9 mmol/L (3.5-5.1); SODIUM SERUM 140 mmol/L (136-145); TOTAL BILIRUBIN 0.2 mg/dL (0.0-1.0); UREA NITROGEN, BLOOD 9 mg/dL (8-21)
[2021-11-26 08:53] LABS: ANION GAP 3 (5-15)
[2021-11-26 09:25] LABS: ERYTHROCYTE SEDIMENTATION RATE 54 MM/HR (0-20)
[2021-11-26] MEDS: predniSONE 20 MG TABLET PO SCH ×2 (09:25→17:54)
[2021-11-26] MEDS: PANTOPRAZOLE SODIUM 40 MG TAB PO SCH (09:25)
--- NOTE | 2021-11-26 09:32 | NUR ---
Judy Aguilar. Addendum: 11/26/21 at 1032 by Carrie Strong RN MD notified of ABG report; will carry out new orders.
[2021-11-26 10:26] LABS: C-REACTIVE PROTEIN QUANT 0.5 mg/dL (0-0.5)
[2021-11-26] MEDS ORDERED: LOSARTAN POTASSIUM 25 MG TABLET PO ONE (11:45)
[2021-11-26 12:00] VITALS: BP_SYST 175
--- NOTE | 2021-11-26 12:24 | NUR ---
RESPIRATORY THERAPY AT BEDSIDE PT receiving breathing treatment, complaining of shortness of breath and anxiety. Provided comfort measures to PT by contacting her daughter. PT's oxygen saturation stable while receiving treatment.
[2021-11-26] MEDS: ALPRAZolam 0.25 MG TABLET PO PRN (12:45)
[2021-11-26] MEDS: cefTRIAXone 1 GM in D5W 50 ML IV SCH (13:50)
[2021-11-26] MEDS: NORMAL SALINE 5 ML DISP.SYRIN IVF SCH ×2 (13:51→22:52)
[2021-11-26 16:00] VITALS: BP_SYST 144
--- NOTE | 2021-11-26 18:28 | NUR ---
CLOSING NOTE PT sitting in bed eating dinner, AxO x4. PT denies pain. Respirations are even and regular, oxymizer on 5L in place. IV on R forearm is clean, dry, intact, and patent. Assisted PT to reposition with pillows. Safety checks were made and call light within reach.
--- NOTE | 2021-11-26 19:00 | NUR ---
ROUNDS PT sleeping, no signs of pain or discomfort. Oxymizer in place on 5L. Addendum: 11/26/21 at 1902 by Angie Hay LVN Correct time: 1400
[2021-11-26] MEDS: ATORVASTATIN 10 MG TABLET PO SCH (22:44)
[2021-11-27] MEDS: IPRATROPIUM/ALBUTEROL SULFATE 3 ML AMPUL.NEB (DUONEB) INH SCH ×6 (03:00→23:00)
[2021-11-27 07:00] VITALS: BP_SYST 154
--- NOTE | 2021-11-27 07:16 | NUR ---
CLOSING NOTES PATIENT CONTINUOSLY MONITORED TRHROUGHOUT THE SDHIFT. O2SAT FLUCTUATING BETWEEN LOW 80S AND MID 90S. SUPPLEMENTAL OXYGEN THERAPY INCREASED TO 5L DURING THE SHIFRT. PATIENT NOTED RESTLESS EARLY HOURS OF TODAY. WAS REPOSITIONED, CLEANED UP AND MADE COMFORTABLE AND SHE WENT BACK TO SLEEP. ASLEEP AT THIS TIME.
--- NOTE | 2021-11-27 07:41 | NUR ---
TITUS MILLER WAS CALLED SEVERAL TIMES (3X) LAST NIGHT, REPAGED AGAIN THIS AM, RE: CRITICAL ABG RESULTS. SPOKE TO ADRIAN.
[2021-11-27] MEDS: predniSONE 20 MG TABLET PO SCH ×2 (08:30→17:26)
[2021-11-27] MEDS ORDERED: LOSARTAN POTASSIUM 25 MG TABLET PO SCH (09:00)
[2021-11-27] MEDS: PANTOPRAZOLE SODIUM 40 MG TAB PO SCH (09:50)
[2021-11-27] MEDS: ALPRAZolam 0.25 MG TABLET PO PRN (09:50)
[2021-11-27 12:00] VITALS: BP_SYST 156
--- NOTE | 2021-11-27 12:27 | NUR ---
ATTENDING MD DR SHELTON WAS CALLED RE: CHANGE IN PT'S CONDITION/STATUS. SPOKE TO ADRIAN.
--- NOTE | 2021-11-27 12:45 | NUR ---
Nutrition F/U Admit Dx: Hypoxia, Acute Coronary Syndrome RD reviewed pt's current EMR including diet Hx, physician notes, nursing notes, pertinent labs/meds/procedures, care trends and care activity. Current Diet Order/Nutrition Support: 2gm Na chopped Ensure Enlive TID x 5 days Subjective information: Pt was seen in bed. Awake and RN was in the room providing care. Pt verbalized food preferences, RD will notify dietary aide, and also reported dislike to ONS as it gives her frequent BM's. Pt reported that she had a BM 3 days ago. Per EMR review, pt is on 4L oxymizer, Bal scale: 14, per bi developer, pt w/ pale skin color, erythema to coccyx area and no edema noted. PO intake record indicates pt is meeting <75% of estimated needs. ONS is in diet order and remains appropriate to optimize PO intake. Dietitian Recommendation: Modify ONS to Ensure Clear TID. Continue current diet order. LOBITO, RD
[2021-11-27] MEDS: cefTRIAXone 1 GM in D5W 50 ML IV SCH (13:00)
--- NOTE | 2021-11-27 15:20 | NUR ---
ATTENDING MD DR SHELTON ORDERED DISCHARGE WITH HOSPICE. [facility]/HCP CM MS XENA CASON WAS CALLED TO CHECK ON THE STATUS FOR HOSPICE EVAL AND PLACEMENT. LEFT MS MCCALLUM A VOICE MESSAGE.
[2021-11-27 16:00] VITALS: BP_SYST 158
--- NOTE | 2021-11-27 17:53 | NUR ---
AMARIS SELLERS INFORMED THAT THE PATIENTS 02 SATURATION IS OFF
--- NOTE | 2021-11-27 19:30 | NUR ---
patient demanding lot's of care due to alteration in Oxygenation and circulation. Confused slightly on 5 liter's hi flow 02 . repeating gases from last night gases terrible with high co2 and low po2. notified of new gases cable placer notified of gases patient not looking good with these abg number's. Patient needs to be intubated several hours to accomplish these tasks patient hard stick. Spoke with daughter later close around noon. Patient's wishes not to be intubated. Patient now DNR with plan's for hospice care. [facility] came to arrange for hospice care. Patient scheduled to go tomorrow to [facility] hospice [facility] Pulonologist came before end of shift to see patient updated on plan of care. Niece here along with daughter to see patient. Patient becoming more confused as day progressed. Reported off to night primary nurse. assessment completed patient sitting up in high position mostly on back to facilitate breathing. Able to turn paient several time's short time interval's only. saftey measure's in place per protocol.
[2021-11-27] MEDS: ATORVASTATIN 10 MG TABLET PO SCH (22:08)
[2021-11-27] MEDS: D5/0.45 NS 1,000 ML IV SCH (22:15)
[2021-11-28] MEDS: IPRATROPIUM/ALBUTEROL SULFATE 3 ML AMPUL.NEB (DUONEB) INH SCH ×3 (03:00→11:31)
[2021-11-28 05:39] VITALS: BP_SYST 157
[2021-11-28 11:34] VITALS: BP_SYST 129
== END 2021-11-28 12:50 | disposition hospice, home (50) | DRG 177 ==
LOC: SED 13:05 → SMU 20:45 → STU 23:07 → SMU 11-22 11:07
PROVIDERS: ADMIT Internal Medicine Hospice and Palliative Medicine; ATTEND Internal Medicine Hospice and Palliative Medicine
PROC: 5A09457 Assistance with Respiratory Ventilation, 24-96 Consecutive Hours, Continuous Positive Airway Pressure (ICD-10-PCS; 2021-11-16)
PROC: 5A09357 Assistance with Respiratory Ventilation, Less than 24 Consecutive Hours, Continuous Positive Airway Pressure (ICD-10-PCS; principal; 2021-11-20)
PROC: 5A0935A Assistance with Respiratory Ventilation, Less than 24 Consecutive Hours, High Flow/Velocity Cannula (ICD-10-PCS; 2021-11-21)
DX: J69.0 Pneumonitis due to inhalation of food and vomit (principal); E43 Unspecified severe protein-calorie malnutrition; I21.A1 Myocardial infarction type 2; J96.21 Acute and chronic respiratory failure with hypoxia; J96.22 Acute and chronic respiratory failure with hypercapnia; J44.0 Chronic obstructive pulmonary disease with (acute) lower respiratory infection; J44.1 Chronic obstructive pulmonary disease with (acute) exacerbation; E46 Unspecified protein-calorie malnutrition; F03.90 Unspecified dementia, unspecified severity, without behavioral disturbance, psychotic disturbance, mood disturbance, and anxiety; E78.5 Hyperlipidemia, unspecified; I10 Essential (primary) hypertension; G47.00 Insomnia, unspecified; D75.839 Thrombocytosis, unspecified; D64.9 Anemia, unspecified; M81.0 Age-related osteoporosis without current pathological fracture; Z20.822 Contact with and (suspected) exposure to COVID-19; E88.09 Other disorders of plasma-protein metabolism, not elsewhere classified; F41.1 Generalized anxiety disorder; Z88.6 Allergy status to analgesic agent; Z79.899 Other long term (current) drug therapy; Z87.891 Personal history of nicotine dependence; Z99.81 Dependence on supplemental oxygen; Z68.27 Body mass index [BMI] 27.0-27.9, adult; Z51.5 Encounter for palliative care
CPT/HCPCS: 36415; 36600; 71045; 71250-TC; 76376; 80048; 80053; 80061; 82607; 82746; 82803-TC; 83540; 83550; 83605; 83880; 84484; 85025; 85651-TC; 86140; 87040; 93005; 93970; 94640; 94660; 94760; 96365; 96367; 97116-GP; 99291; G0378; J0456; J0696; J2060; J7050; J7060; J7512; U0003